=== PATIENT | female | born 2000 | race African-American/Black ===

== ENCOUNTER 2025-02-20 15:11 | Emergency (ER) | payer OTHER ==
[~2025-02-20] VITALS: Ht 177.8 cm; Wt 62.6 kg
[2025-02-20 17:21] VITALS: BP 110/70; TEMP 98.2; O2SAT 98
[2025-02-21] MEDS ORDERED: AZIT250T PO (05:47)
[2025-02-21] MEDS ORDERED: PRED50TA PO (05:47)
[2025-02-21] MEDS ORDERED: KETO10TA2 PO (05:47)
== END 2025-02-20 16:20 | disposition home or self-care (01) ==
LOC: ER 15:11
DX: F41.0 Panic disorder [episodic paroxysmal anxiety] (principal); R07.89 Other chest pain; R11.0 Nausea; Z60.2 Problems related to living alone
CPT/HCPCS: 71045-TC

== ENCOUNTER 2025-02-20 20:34 | Emergency (ER) | payer OTHER ==
[~2025-02-20] VITALS: Ht 177.8 cm; Wt 61.7 kg
[2025-02-20 23:55] LABS: BASOPHILS # (AUTO) 0.1 K/uL (0.0-0.2); BASOPHILS % (AUTO) 0.7 % (0.0-2.0); EOSINOPHILS % (AUTO) 0.4 % (0.0-6.0); HEMATOCRIT 39 % (33-45); HEMOGLOBIN 13.3 g/dL (11.5-14.8); LYMPHOCYTES # (AUTO) 1.6 K/uL (0.8-4.8); LYMPHOCYTES % (AUTO) 22.1 % (20.0-44.0); MEAN CORPUSCULAR HEMOGLOBIN 31 PG (26.0-33.0); MEAN CORPUSCULAR HGB CONC 34 g/dl (31.0-36.0); MEAN CORPUSCULAR VOLUME 92 fL (82-100); MONOCYTES # (AUTO) 0.5 K/uL (0.1-1.30); MONOCYTES % (AUTO) 6.5 % (2.0-12.0); NEUTROPHILS # (AUTO) 5.2 K/uL (1.8-8.9); NEUTROPHILS % (AUTO) 70.3 % (43.0-81.0); PLATELET COUNT (AUTO) 281 K/uL (150-450); RED BLOOD CELL COUNT(AUTO) 4.29 MIL/uL (4.0-5.2); RED CELL DISTRIBUTION WIDTH 13.7 % (11.5-15.0); WHITE BLOOD COUNT (AUTO) 7.4 K/uL (4.3-11.0)
[2025-02-21] LABS: APPEARANCE,URINE SLIGHTLY CLOUDY (CLEAR); BILIRUBIN,URINE NEGATIVE (NEGATIVE); BLOOD, URINE NEGATIVE Ery/uL (NEGATIVE); COLOR,URINE YELLOW (YELLOW); KETONES,URINE NEGATIVE (NEGATIVE); LEUKOCYTE ESTERASE ,URINE NEGATIVE (NEGATIVE); NITRITE, URINE NEGATIVE (NEGATIVE); PROTEIN,URINE NEGATIVE (NEGATIVE); UGLUCOSE NEGATIVE (NEGATIVE); UROBILINOGEN,URINE 0.2 EU/dL (0.2)
[2025-02-21 00:03] LABS: CALCIUM, SERUM 9.4 mg/dL (8.5-10.1); CARBON DIOXIDE 28 mmol/L (21-32); CHLORIDE 103 mmol/L (98-107); CREATININE 0.7 mg/dL (0.6-1.3); GLUCOSE 94 mg/dL (74-106); POTASSIUM 3.9 mmol/L (3.5-5.1); SODIUM SERUM 139 mmol/L (136-145); UREA NITROGEN, BLOOD 12 mg/dL (7-18)
[2025-02-21 00:11] LABS: PREGNANCY TEST URINE QUAL NEGATIVE (NEGATIVE)
[2025-02-21 00:16] LABS: ALANINE AMINOTRANSFERASE 23 U/L (12-78); ALKALINE PHOSPHATASE 59 U/L (46-116); ASPARTATE AMINOTRANSFERASE 19 U/L (15-37); BILIRUBIN,TOTAL 0.5 mg/dL (0.2-1.0); NT-PRO BNP 21 pg/mL (0-125); TOTAL PROTEIN, SERUM 7.6 g/dL (6.4-8.2)
[2025-02-21 00:19] LABS: ALCOHOL, BLOOD < 3 mg/dL (0-10)
[2025-02-21 00:27] LABS: ADD URINE CULTURE YES; BACTERIA,URINE Moderate /HPF (None Seen); RBC,URINE 0-2 /HPF (0-2); SQUAMOUS EPITHELIAL CELL,UR Moderate /HPF (None Seen)
[2025-02-21 00:29] LABS: AMPHETAMINE, URINE NEGATIVE (NEGATIVE); BARBITURATE, URINE NEGATIVE (NEGATIVE); BENZODIAZEPINE, URINE NEGATIVE (NEGATIVE); CANNABINOID, URINE NEGATIVE (NEGATIVE); COCCAINE, URINE NEGATIVE (NEGATIVE); OPIATE, URINE NEGATIVE (NEGATIVE); PHENCYCLIDINE SCREEN,URINE NEGATIVE (NEGATIVE)
[2025-02-21] MEDS ORDERED: LORAZEPAM INJ 2 MG/ML VIAL ONE (04:34)
[2025-02-21] MEDS: LORAZEPAM INJ 2 MG/ML VIAL IM STA (04:42)
[2025-02-21] MEDS ORDERED: PRED50TA PO (05:47)
[2025-02-21] MEDS ORDERED: KETO10TA2 PO (05:47)
[2025-02-21] MEDS ORDERED: AZIT250T PO (05:47)
[2025-02-21 06:03] VITALS: BP 110/71; TEMP 98.7; O2SAT 100
[2025-02-22] MEDS ORDERED: ONDA4TAB11 PO (11:56)
== END 2025-02-21 06:04 | disposition home or self-care (01) ==
LOC: ER 20:45
DX: R07.89 Other chest pain (principal); F41.9 Anxiety disorder, unspecified; Z79.52 Long term (current) use of systemic steroids; Z60.2 Problems related to living alone; Z79.899 Other long term (current) drug therapy
CPT/HCPCS: 99285; 93005; 71045; 85025; 84703; 81001; 36415 ×2; 80053; 84484; 83880; 80320; 80307; 96372; 71250; 87040; 87086; 85378; J2060; G0480

== ENCOUNTER 2025-02-22 10:18 | Emergency (ER) | payer OTHER ==
[~2025-02-22] VITALS: Ht 177.8 cm; Wt 67.1 kg
[~2025-02-22 10:18] MED LIST: AZIT250T PO; KETO10TA2 PO; PRED50TA PO
[2025-02-22] MEDS: IV NS 0.9% 1,000 ML BAG IV ONE (11:00)
[2025-02-22] MEDS: ONDANSETRON HCL/PF 4 MG/2 ML VIAL IVP ONE (11:00)
[2025-02-22] MEDS ORDERED: ONDANSETRON HCL/PF 4 MG/2 ML VIAL ONE (11:08)
[2025-02-22 11:27] LABS: BASOPHILS % (AUTO) 0.5 % (0.0-2.0); EOSINOPHILS % (AUTO) 0.2 % (0.0-6.0); HEMATOCRIT 39 % (33-45); HEMOGLOBIN 13.2 g/dL (11.5-14.8); LYMPHOCYTES # (AUTO) 2.3 K/uL (0.8-4.8); LYMPHOCYTES % (AUTO) 33.7 % (20.0-44.0); MEAN CORPUSCULAR HEMOGLOBIN 31 PG (26.0-33.0); MEAN CORPUSCULAR HGB CONC 34 g/dl (31.0-36.0); MEAN CORPUSCULAR VOLUME 92 fL (82-100); MONOCYTES # (AUTO) 0.6 K/uL (0.1-1.30); MONOCYTES % (AUTO) 9.1 % (2.0-12.0); NEUTROPHILS # (AUTO) 3.9 K/uL (1.8-8.9); NEUTROPHILS % (AUTO) 56.5 % (43.0-81.0); PLATELET COUNT (AUTO) 282 K/uL (150-450); RED CELL DISTRIBUTION WIDTH 13.4 % (11.5-15.0); WHITE BLOOD COUNT (AUTO) 6.9 K/uL (4.3-11.0)
[2025-02-22 11:33] LABS: CALCIUM, SERUM 9.1 mg/dL (8.5-10.1); CREATININE 0.8 mg/dL (0.6-1.3); POTASSIUM 3.6 mmol/L (3.5-5.1)
[2025-02-22] MEDS: LORAZEPAM 4 MG/ML VIAL IV ONE (11:55)
[2025-02-22] MEDS ORDERED: ONDA4TAB11 PO (11:56)
[2025-02-22] MEDS ORDERED: ACETAMINOPHEN ES 500 MG TABLET ONE (12:31)
[2025-02-22] MEDS: ACETAMINOPHEN ES 500 MG TABLET PO ONE (12:40)
[2025-02-22 12:43] VITALS: BP 110/70; TEMP 98.6; O2SAT 98
== END 2025-02-22 12:43 | disposition home or self-care (01) ==
LOC: ER 10:22
DX: R11.2 Nausea with vomiting, unspecified (principal); R07.89 Other chest pain; R10.2 Pelvic and perineal pain; R19.7 Diarrhea, unspecified; Z79.899 Other long term (current) drug therapy; Z79.52 Long term (current) use of systemic steroids; Z60.2 Problems related to living alone
CPT/HCPCS: 99285; 96374; 96361; 71045; 93005; 85025; 80048; 36415; 84702; J2405; J7030; A4223; J2060